=== PATIENT | male | born 1960 | race Caucasian/White ===

== ENCOUNTER 2024-03-03 10:07 | Outpatient (CLI) | payer OTHER, SELFPAY | END 2024-03-03 10:08 | disposition home or self-care (01) | LOC: LKVREF 10:11 | PROVIDERS: PCP Family Medicine; Visit Provider Family Medicine | DX: Z00.00 Encounter for general adult medical examination without abnormal findings (principal); Z13.0 Encounter for screening for diseases of the blood and blood-forming organs and certain disorders involving the immune mechanism; Z12.5 Encounter for screening for malignant neoplasm of prostate | CPT/HCPCS: 87086; G0103 ==